=== PATIENT | female | born 1965 | race Two or more races ===

== ENCOUNTER 2019-12-07 10:31 | Inpatient (IN) | payer SELFPAY ==
[~2019-12-07] VITALS: Ht 154.9 cm; Wt 69.9 kg
[2019-12-07] MEDS ORDERED: ALBUTEROL SULF 2.5 MG/0.5ML(0.5%) NEB SOLN HHN ONE (11:00)
[2019-12-07] MEDS ORDERED: IPRATROPIUM BROM 0.5 MG/2.5ML INH SOL HHN ONE (11:00)
[2019-12-07] MEDS ORDERED: methylPREDNISolone SOD SUCC 125 MG/2 ML VL IV ONE (11:00)
[2019-12-07] MEDS ORDERED: cefTRIAXone 1GM/50ML D5W 50 ML IV ONE (11:30)
[2019-12-07 11:52] LABS: Alanine Aminotransferase 48 U/L (13-56); Aspartate Aminotransferase 27 U/L (15-37); BUN/Creatinine Ratio 18.8; Blood Urea Nitrogen 13 mg/dL (7-18); Calcium 8.4 mg/dL (8.5-10.1); Chloride 83 mmol/L (98-107); GFR African American 114 mL/min; GFR Non-African American 94 mL/min; Glucose 147 mg/dL (74-106)
[2019-12-07 11:54] LABS: Basophils # (auto) 0.1 10 ^3/uL (0-0.2); Basophils % (auto) 1.1 % (0.0-2.0); Eosinophils # (auto) 0 10 ^3/uL (0-0.8); Hematocrit 48.2 % (36.0-46.0); Hemoglobin 17.1 g/dL (12.2-16.2); Lymphocytes # (auto) 0.5 10 ^3/uL (0.4-5.4); Lymphocytes % (auto) 7.2 % (10.0-50.0); Mean Corpuscular Hemoglobin 29.4 pg (28.0-32.0); Mean Corpuscular Hgb Conc. 35.6 g/dL (32.0-36.0); Mean Corpuscular Volume 82.8 fL (80.0-100.0); Monocytes # (auto) 0.4 10 ^3/uL (0-1.3); Monocytes % (auto) 6.7 % (0.0-12.0); Neutrophils # (auto) 5.6 10 ^3/uL (1.6-8.6); Nucleated Red Blood Cells % 0.2 %; Platelet Count (auto) 186 10^3/uL (140-450); Red Blood Cells 5.82 10^6/uL (4.0-5.20); Red Cell Distribution Width 13.4 % (11.8-14.3); White Blood Cell 6.5 10^3/uL (4.4-10.8)
[2019-12-07 11:57] LABS: Alkaline Phosphatase 88 U/L (45-117); Bilirubin, Total 0.7 mg/dL (0.2-1.0); Total Protein 8.3 g/dL (6.4-8.2)
[2019-12-07 12:04] LABS: Sodium 118 mmol/L (136-145)
[2019-12-07] MEDS ORDERED: POTASSIUM CHL 20MEQ/100ML 100 ML IV ONE (12:15)
[2019-12-07 12:41] LABS: Albumin 3.7 g/dL (3.4-5.0); Anion Gap 14 (5-15); Carbon Dioxide 21 mmol/L (21-32)
[2019-12-07] MEDS ORDERED: OSELTAMIVIR 75 MG CAP PO ONE (13:45)
[2019-12-07] MEDS ORDERED: ACETAMINOPHEN 500 MG TAB PO PRN (13:45)
[2019-12-07] MEDS ORDERED: PROMETHAZINE HCL 25 MG/ML 1ML IV PRN (13:45)
[2019-12-07] MEDS ORDERED: traMADol HCL 50 MG TAB PO PRN (13:45)
[2019-12-07] MEDS ORDERED: TEMAZEPAM 15 MG CAP PO PRN (13:45)
[2019-12-07] MEDS ORDERED: NITROGLYCERIN 0.4 MG SL TAB SL PRN (13:45)
[2019-12-07] MEDS ORDERED: MORPHINE SULF INJ 2 MG/ML SYRINGE 1ML IV PRN (13:45)
[2019-12-07] MEDS ORDERED: levoFLOXacin 500MG 100 ML IV ONE (13:45)
[2019-12-07] MEDS ORDERED: LACTULOSE 20Gm/30ML SOLN PO PRN (13:45)
[2019-12-07] MEDS ORDERED: ALBUTEROL SULF 2.5 MG/0.5ML(0.5%) NEB SOLN NEB PRN (13:45)
[2019-12-07 14:11] LABS: Amylase 26 U/L (25-115); Lipase 66 U/L (73-393)
[2019-12-07] MEDS: CLINDAMYCIN 600MG IV 50 ML IV SCH ×2 (15:07→22:22)
[2019-12-07] MEDS: SOD CHL 0.9%/ KCL 40MEQ 1,000 ML IV SCH ×2 (15:28→23:42)
[2019-12-07 18:45] VITALS: BP 132/74
[2019-12-07] MEDS: ALBUTEROL SULF 2.5 MG/0.5ML(0.5%) NEB SOLN NEB SCH (19:06)
[2019-12-07] MEDS: IPRATROPIUM BROM 0.5 MG/2.5ML INH SOL NEB SCH (19:06)
[2019-12-07 20:00] VITALS: BP 128/74
[2019-12-07] MEDS ORDERED: OSELTAMIVIR 75 MG CAP PO SCH (22:00)
[2019-12-07] MEDS: FAMOTIDINE 20 MG TAB PO SCH (22:22)
[2019-12-08] VITALS (7 sets, daily range): BP systolic 121–134; BP diastolic 67–80
[2019-12-08] MEDS: IPRATROPIUM BROM 0.5 MG/2.5ML INH SOL NEB SCH ×4 (00:11→18:33)
[2019-12-08] MEDS: ALBUTEROL SULF 2.5 MG/0.5ML(0.5%) NEB SOLN NEB SCH ×4 (00:11→18:33)
[2019-12-08] MEDS: SOD CHL 0.9%/ KCL 40MEQ 1,000 ML IV SCH (04:26)
[2019-12-08 05:25] LABS: Basophils # (auto) 0 10 ^3/uL (0-0.2); Basophils % (auto) 0.4 % (0.0-2.0); Eosinophils # (auto) 0 10 ^3/uL (0-0.8); Hematocrit 40.9 % (36.0-46.0); Hemoglobin 14.6 g/dL (12.2-16.2); Lymphocytes # (auto) 0.6 10 ^3/uL (0.4-5.4); Lymphocytes % (auto) 8.5 % (10.0-50.0); Mean Corpuscular Hemoglobin 29.7 pg (28.0-32.0); Mean Corpuscular Hgb Conc. 35.7 g/dL (32.0-36.0); Mean Corpuscular Volume 83.1 fL (80.0-100.0); Monocytes # (auto) 0.6 10 ^3/uL (0-1.3); Monocytes % (auto) 8.2 % (0.0-12.0); Neutrophils # (auto) 5.9 10 ^3/uL (1.6-8.6); Neutrophils % (auto) 82.9 % (37.0-80.0); Nucleated Red Blood Cells % 0.2 %; Platelet Count (auto) 178 10^3/uL (140-450); Red Blood Cells 4.92 10^6/uL (4.0-5.20); Red Cell Distribution Width 13.4 % (11.8-14.3); White Blood Cell 7.2 10^3/uL (4.4-10.8)
[2019-12-08 05:45] LABS: Potassium 4.1 mmol/L (3.5-5.1)
[2019-12-08 05:49] LABS: BUN/Creatinine Ratio 15.3; Bilirubin, Total 0.3 mg/dL (0.2-1.0); Total Protein 6.7 g/dL (6.4-8.2)
[2019-12-08] MEDS: CLINDAMYCIN 600MG IV 50 ML IV SCH (06:21)
[2019-12-08] MEDS: levoFLOXacin 500MG 100 ML IV SCH (09:31)
[2019-12-08] MEDS: FAMOTIDINE 20 MG TAB PO SCH ×2 (09:31→21:37)
[2019-12-08] MEDS ORDERED: LISI10TA6 PO (10:47)
[2019-12-08] MEDS ORDERED: HYDR25TA4 PO (10:47)
[2019-12-08] MEDS ORDERED: PANTOPRAZOLE 40 MG TAB PO ONE (11:45)
[2019-12-08 11:56] LABS: Urine Bacteria NONE SEEN /hpf (None Seen); Urine Blood Negative /uL (Negative); Urine Specific Gravity 1.008 (1.001-1.035); Urine WBC 1 /hpf (0 - 5)
[2019-12-08] MEDS ORDERED: IOHEXOL 350 MG/ML 100ML IJ ONE (12:21)
[2019-12-08] MEDS ORDERED: OSELTAMIVIR 75 MG CAP PO ONE (13:30)
[2019-12-08] MEDS ORDERED: DEXTROSE (50%) 50ML SYRG IV PRN (13:30)
[2019-12-08] MEDS: methylPREDNISolone SOD SUCC 125 MG/2 ML VL IV SCH ×2 (13:49→21:37)
[2019-12-08 15:04] LABS: BUN/Creatinine Ratio 13.6; Calcium 8.3 mg/dL (8.5-10.1); Magnesium 2.3 mg/dL (1.6-2.6); Potassium 3.7 mmol/L (3.5-5.1)
[2019-12-08] MEDS: InsuLIN REG 1unit/0.01ml Soln (100units/ml) SC SCH ×2 (17:28→22:25)
[2019-12-08] MEDS: ACCU-CHEK COMFORT CURVE STRIP VI SCH ×2 (17:29→22:25)
[2019-12-08] MEDS ORDERED: OSELTAMIVIR 75 MG CAP PO SCH (22:00)
[2019-12-09] MEDS: ALBUTEROL SULF 2.5 MG/0.5ML(0.5%) NEB SOLN NEB SCH ×4 (01:55→18:55)
[2019-12-09] MEDS: IPRATROPIUM BROM 0.5 MG/2.5ML INH SOL NEB SCH ×4 (01:55→18:55)
[2019-12-09 04:00] VITALS: BP 113/62
[2019-12-09 05:56] LABS: BUN/Creatinine Ratio 22.7; Calcium 8.6 mg/dL (8.5-10.1)
[2019-12-09] MEDS: methylPREDNISolone SOD SUCC 125 MG/2 ML VL IV SCH ×3 (06:13→22:14)
[2019-12-09] MEDS: InsuLIN REG 1unit/0.01ml Soln (100units/ml) SC SCH ×4 (06:53→22:34)
[2019-12-09] MEDS: ACCU-CHEK COMFORT CURVE STRIP VI SCH ×4 (06:53→22:15)
[2019-12-09 07:40] VITALS: BP 141/72
[2019-12-09] MEDS: levoFLOXacin 500MG 100 ML IV SCH (09:42)
[2019-12-09] MEDS: FAMOTIDINE 20 MG TAB PO SCH ×2 (09:42→22:15)
[2019-12-09] MEDS: OSELTAMIVIR 75 MG CAP PO SCH (09:43)
[2019-12-09] MEDS: PANTOPRAZOLE 40 MG TAB PO SCH (09:43)
[2019-12-09 11:45] VITALS: BP 139/74
[2019-12-09] MEDS: Glucerna Carbsteady SHAKE Vanilla 8oz PO SCH ×2 (12:00→18:00)
[2019-12-09 22:00] VITALS: BP 145/80
[2019-12-10] MEDS: IPRATROPIUM BROM 0.5 MG/2.5ML INH SOL NEB SCH ×5 (00:20→23:36)
[2019-12-10] MEDS: ALBUTEROL SULF 2.5 MG/0.5ML(0.5%) NEB SOLN NEB SCH ×5 (00:20→23:36)
[2019-12-10 05:00] VITALS: BP 133/83
[2019-12-10] MEDS: ACCU-CHEK COMFORT CURVE STRIP VI SCH ×4 (06:53→21:11)
[2019-12-10] MEDS: methylPREDNISolone SOD SUCC 125 MG/2 ML VL IV SCH ×3 (06:53→21:10)
[2019-12-10] MEDS: InsuLIN REG 1unit/0.01ml Soln (100units/ml) SC SCH ×4 (07:02→21:23)
[2019-12-10 07:41] LABS: Basophils # (auto) 0 10 ^3/uL (0-0.2); Basophils % (auto) 0.1 % (0.0-2.0); Eosinophils # (auto) 0 10 ^3/uL (0-0.8); Hematocrit 41.8 % (36.0-46.0); Hemoglobin 14.7 g/dL (12.2-16.2); Lymphocytes # (auto) 1.3 10 ^3/uL (0.4-5.4); Lymphocytes % (auto) 12.7 % (10.0-50.0); Mean Corpuscular Hemoglobin 29.5 pg (28.0-32.0); Mean Corpuscular Hgb Conc. 35.2 g/dL (32.0-36.0); Mean Corpuscular Volume 83.8 fL (80.0-100.0); Neutrophils # (auto) 7.9 10 ^3/uL (1.6-8.6); Neutrophils % (auto) 77.2 % (37.0-80.0); Platelet Count (auto) 235 10^3/uL (140-450); Red Blood Cells 4.98 10^6/uL (4.0-5.20); Red Cell Distribution Width 13.5 % (11.8-14.3); White Blood Cell 10.2 10^3/uL (4.4-10.8)
[2019-12-10 07:51] LABS: Calcium 8.6 mg/dL (8.5-10.1); Potassium 3.9 mmol/L (3.5-5.1)
[2019-12-10] MEDS: Glucerna Carbsteady SHAKE Vanilla 8oz PO SCH ×3 (08:17→18:05)
[2019-12-10 08:34] VITALS: BP 154/86
[2019-12-10] MEDS: OSELTAMIVIR 75 MG CAP PO SCH (10:00)
[2019-12-10] MEDS: PANTOPRAZOLE 40 MG TAB PO SCH (10:36)
[2019-12-10] MEDS: AZITHROMYCIN 250 MG TAB PO SCH (10:37)
[2019-12-10] MEDS: FAMOTIDINE 20 MG TAB PO SCH ×2 (10:37→21:10)
[2019-12-10 12:38] VITALS: BP 136/75
[2019-12-10 17:00] VITALS: BP 140/74
[2019-12-10 19:03] VITALS: BP 140/74
[2019-12-10 22:00] VITALS: BP 147/87
[2019-12-11 05:38] VITALS: BP 133/81
[2019-12-11 06:25] LABS: Basophils # (auto) 0 10 ^3/uL (0-0.2); Eosinophils # (auto) 0 10 ^3/uL (0-0.8); Hematocrit 42.8 % (36.0-46.0); Lymphocytes # (auto) 0.8 10 ^3/uL (0.4-5.4); Lymphocytes % (auto) 11.4 % (10.0-50.0); Mean Corpuscular Hemoglobin 29.6 pg (28.0-32.0); Mean Corpuscular Volume 84.6 fL (80.0-100.0); Monocytes # (auto) 0.2 10 ^3/uL (0-1.3); Monocytes % (auto) 2.8 % (0.0-12.0); Neutrophils # (auto) 6.2 10 ^3/uL (1.6-8.6); Neutrophils % (auto) 85.8 % (37.0-80.0); Nucleated Red Blood Cells % 0.1 %; Platelet Count (auto) 239 10^3/uL (140-450); Red Blood Cells 5.06 10^6/uL (4.0-5.20); Red Cell Distribution Width 13.5 % (11.8-14.3); White Blood Cell 7.2 10^3/uL (4.4-10.8)
[2019-12-11] MEDS: methylPREDNISolone SOD SUCC 125 MG/2 ML VL IV SCH (06:28)
[2019-12-11] MEDS: ACCU-CHEK COMFORT CURVE STRIP VI SCH ×4 (06:28→22:24)
[2019-12-11] MEDS: ALBUTEROL SULF 2.5 MG/0.5ML(0.5%) NEB SOLN NEB SCH ×3 (06:30→19:45)
[2019-12-11] MEDS: IPRATROPIUM BROM 0.5 MG/2.5ML INH SOL NEB SCH ×3 (06:30→19:45)
[2019-12-11 06:33] LABS: Calcium 8.6 mg/dL (8.5-10.1)
[2019-12-11 06:35] LABS: BUN/Creatinine Ratio 36.4
[2019-12-11] MEDS: InsuLIN REG 1unit/0.01ml Soln (100units/ml) SC SCH ×4 (06:47→22:35)
[2019-12-11 08:00] VITALS: BP 147/75
[2019-12-11] MEDS: Glucerna Carbsteady SHAKE Vanilla 8oz PO SCH ×3 (08:00→18:00)
[2019-12-11 08:59] VITALS: BP 147/75
[2019-12-11] MEDS: FAMOTIDINE 20 MG TAB PO SCH ×2 (10:25→22:18)
[2019-12-11] MEDS: AZITHROMYCIN 250 MG TAB PO SCH (10:25)
[2019-12-11] MEDS: methylPREDNISolone SOD SUCC 40 MG/ML VL IV SCH ×2 (10:25→22:18)
[2019-12-11] MEDS: PANTOPRAZOLE 40 MG TAB PO SCH (10:25)
[2019-12-11 13:00] VITALS: BP 146/76
[2019-12-11 17:00] VITALS: BP 143/75
[2019-12-11 22:00] VITALS: BP 140/73
[2019-12-12] MEDS: IPRATROPIUM BROM 0.5 MG/2.5ML INH SOL NEB SCH ×3 (00:34→11:59)
[2019-12-12] MEDS: ALBUTEROL SULF 2.5 MG/0.5ML(0.5%) NEB SOLN NEB SCH ×3 (00:34→11:59)
[2019-12-12 04:55] VITALS: BP 145/90
[2019-12-12] MEDS: ACCU-CHEK COMFORT CURVE STRIP VI SCH ×2 (06:43→11:29)
[2019-12-12] MEDS: InsuLIN REG 1unit/0.01ml Soln (100units/ml) SC SCH ×2 (06:50→11:29)
[2019-12-12] MEDS: Glucerna Carbsteady SHAKE Vanilla 8oz PO SCH ×2 (08:34→13:05)
[2019-12-12 09:00] VITALS: BP 141/79
[2019-12-12] MEDS: AZITHROMYCIN 250 MG TAB PO SCH (09:28)
[2019-12-12] MEDS: FAMOTIDINE 20 MG TAB PO SCH (09:28)
[2019-12-12] MEDS: PANTOPRAZOLE 40 MG TAB PO SCH (09:29)
[2019-12-12] MEDS: methylPREDNISolone SOD SUCC 40 MG/ML VL IV SCH (09:29)
[2019-12-12 12:19] VITALS: BP 152/76
[2019-12-12 13:01] VITALS: BP 152/76
== END 2019-12-12 14:00 | disposition home or self-care (01) | DRG 193 ==
LOC: ER 10:31 → TELE 10:32 → DOU IN ICU 18:18 → TELE-CENTR 12-09 13:06
PROVIDERS: ADMIT Internal Medicine; ATTEND Internal Medicine
DX: J18.9 Pneumonia, unspecified organism (principal); J96.00 Acute respiratory failure, unspecified whether with hypoxia or hypercapnia; E87.1 Hypo-osmolality and hyponatremia; E44.0 Moderate protein-calorie malnutrition; J44.0 Chronic obstructive pulmonary disease with (acute) lower respiratory infection; E78.00 Pure hypercholesterolemia, unspecified; I10 Essential (primary) hypertension; E78.5 Hyperlipidemia, unspecified; E87.6 Hypokalemia; R00.0 Tachycardia, unspecified; E11.65 Type 2 diabetes mellitus with hyperglycemia; E11.21 Type 2 diabetes mellitus with diabetic nephropathy; R59.1 Generalized enlarged lymph nodes; Z68.29 Body mass index [BMI] 29.0-29.9, adult
CPT/HCPCS: 36415; 71045; 71046; 71275; 80048; 80053; 81001; 82150; 82962; 83036; 83690; 83735; 83880; 84439; 84443; 84484; 85025; 86738; 87040; 87070; 87205; 87278; 87804; 93005; 94640; 96365; 96367; 96375; 97163; G0378; J0696; J1815; J1956; J3480; J3490

== ENCOUNTER 2024-10-22 05:13 | Emergency (ER) | payer MEDICAID, OTHER ==
[~2024-10-22] VITALS: Ht 152.4 cm; Wt 75.0 kg
[~2024-10-22 05:13] MED LIST: HYDR25TA4 PO; LISI10TA34 PO
[2024-10-22 07:21] VITALS: BP 140/80; PULSE 99; RESP 16; TEMP 97.9; O2SAT 93
--- NOTE | 2024-10-22 07:38 | ED.PDOC ---
History of Present Illness HPI Comments Patient with Headache flu symptoms x 2 days. Productive cough with green mucus. Body aches and fatigue. Chief Complaint: Flu like Time Seen by MD: 07:32 Primary Care Provider: UNKNOWN Allergies: Coded Allergies: NO KNOWN ALLERGIES (Unverified , 02/02/16) Home Meds Reported Medications Lisinopril (Lisinopril) 10 Mg Tab, 10 MG PO DAILY, TAB 12/08/19 Hydrochlorothiazide (Hydrochlorothiazide) 25 Mg Tab, 25 MG PO DAILY for 30 Days, MG 12/08/19 Mode of Arrival: Ambulatory Past Medical History PAST MEDICAL HISTORY: High Lipids, HTN FREE LANCE ARTIST History: No Pertinent FREE LANCE ARTIST History Family History Family History: No family hx of DM, No family hx of Heart kristen, Unobtainable Social History Smoker: Non-Smoker Alcohol: Denies ETOH Use Drugs: Denies Drug Use Lives In: Home Constitutional: reports: chills, fever Respiratory: reports: cough, others (Green mucus) Neurological: reports: weakness Musculoskeletal: reports: muscle pain Physical Exam General Appearance: No Apparent Distress HEENT: Normal ENT Inspection, PERRL/EOMI, Pharynx Normal, TMs Normal Neck: Full Range of Motion, Non-Tender, Normal Inspection, Supple Respiratory: No Accessory Muscle Use, No Respiratory Distress, Normal Breath Sounds Cardiovascular: Regular Rate/Rhythm Breast Exam: Deferred Gastrointestinal: Non Tender, Normal Bowel Sounds Genitalia: Deferred Pelvic: Deferred Rectal: Deferred Extremities: Normal inspection, Normal range of motion Neurologic: No Motor Deficits, Normal Mood, No Sensory Deficits Cerebellar Function: Normal Reflexes: NOT DONE Skin: Dry, Warm Lymphatic: No Adenopathy Was a procedure done? Was a procedure done?: No Differential Dx Considerations may include: Covid vs Influenza X-Ray, Labs, Meds, VS Vital Signs Date Time Temp Pulse Resp B/P (MAP) Pulse Ox O2 Delivery O2 Flow Rate FiO2 10/22/24 07:21 99 16 93 Room Air 10/22/24 07:21 97.9 99 16 140/80 (100) 93 97.9 10/22/24 05:19 98.0 93 16 128/86 (100) 94 Lab Test 10/22/24 07:13 Range/Units Influenza Type A Antigen Negative Negative Influenza Type B Antigen Negative Negative SARS-CoV-2 Antigen (Rapid) Negative NEGATIVE X-Ray, Labs, Meds, VS Comment Patient seen and examined by me. Flu and covid pending. Chest xray pending. Patient flu and Covid were both negative. Patient will be started on Flonase nasal spray and Antibiotics for Upper Respiratory infection. CHEST RADIOGRAPH Indication: low O2 Technique: Frontal and lateral view of the chest was obtained Comparison: CHEST TWO VIEWS ROUTINE on DOS: 12/08/19, CHEST TWO VIEWS ROUTINE on DOS: 12/07/19 FINDINGS: Lines and Tubes: None Lungs: Right lower lobe airspace disease. Pleura: No effusion. No pneumothorax. Cardiomediastinal contours: Unremarkable Bones: Unremarkable IMPRESSION: Right lower lobe airspace disease. Time of 1ST Reevaluation: 09:07 Reevaluation 1ST: Improved Patient Education/Counseling: Diagnosis, Treatment, Prognosis, Need For Follow Up Family Education/Counseling: No Family Present Departure 1 Departure Time of Disposition: 09:07 Impression: Primary Impression: Upper respiratory infection Disposition: HOME / SELF CARE / HOMELESS Condition: Good Additional Instructions: Finish antibiotics as directed Flu and Covid test were normal here Use the nose spray to help with your congestion Drink alot of fluids e-Prescriptions Fluticasone Propionate (Nasal) (Flonase Allergy Relief) 50 Mcg/Act Spr 50 MCG NA BID for 7 Days, #1 SPRAY Prov: LOR MCKINNEY 10/22/24 Amoxicillin & Pot Clavulanate (AUGMENTIN TABLET) 875 Mg Tb 875 MG PO BID for 10 Days, #20 TAB Prov: LOR MCKINNEY 10/22/24 Critical Care Note Critical Care Time?: No Stability Stability form required: No LOR MCKINNEY Oct 22, 2024 07:38
--- NOTE | 2024-10-22 07:58 | DVH ---
CHEST RADIOGRAPH Indication: low O2 Technique: Frontal and lateral view of the chest was obtained Comparison: CHEST TWO VIEWS ROUTINE on DOS: 12/08/19, CHEST TWO VIEWS ROUTINE on DOS: 12/07/19 FINDINGS: Lines and Tubes: None Lungs: Right lower lobe airspace disease. Pleura: No effusion. No pneumothorax. Cardiomediastinal contours: Unremarkable Bones: Unremarkable IMPRESSION: Right lower lobe airspace disease.
[2024-10-22 09:01] LABS: COVID19 ANTIGEN SOFIA FIA NEGATIVE (NEGATIVE); Rapid Influenza A Negative (Negative); Rapid Influenza B Negative (Negative)
[2024-10-22] MEDS ORDERED: AUG875T PO (09:10)
[2024-10-22] MEDS ORDERED: FLUT1SPR5 (09:10)
== END 2024-10-22 09:18 | disposition home or self-care (01) ==
LOC: EDUNIT# 05:13 → EDBD 05:13 → ER 05:13
DX: J06.9 Acute upper respiratory infection, unspecified (principal); I10 Essential (primary) hypertension; R05.9 Cough, unspecified; R53.83 Other fatigue; Z20.822 Contact with and (suspected) exposure to COVID-19
CPT/HCPCS: 36415; 71046; 87426; 87804

== ENCOUNTER 2025-02-03 02:20 | Inpatient (IN) | payer MEDICAID ==
[~2025-02-03] VITALS: Ht 154.9 cm; Wt 56.7 kg
[2025-02-03] VITALS (16 sets, daily range): BP systolic 119–143; BP diastolic 72–81; PULSE 88–124; RESP 16–24; TEMP 97.3–98.3; O2SAT 90–98
[~2025-02-03 02:20] MED LIST changes: +AUG875T PO; +FLUT1SPR5
--- NOTE | 2025-02-03 02:50 | ED.PDOC ---
SOB-HPI HPI Comments 59-year-old female who came to ER with shortness a breath. History of hyp ertension, diabetes, COPD, not on home oxygen. She has been having shortness of breath and wheezing for the past week, has been self medicating with nebulizers and inhalers at home but that has offered no relief. Upon arrival to the ER patient is saturating 85% room air. Comments Shortness a breath Time Seen by MD: 02:48 Primary Care Provider: UNKNOWN Reviewed notes: Nurses Notes Information Source: Patient Mode of Arrival: Ambulatory Severity: Moderate Timing: Days Duration: Intermittent Context: At Rest, With Light Exertion History of: COPD Prehospital treatment: Breathing Tx, Oxygen Associated Signs and Symptoms: Wheeze, Cough Quality: Tightness Radiation: No Radiation Location: Chest (R), Chest (L) If cough with SOB: Non-Productive Review of Systems REVIEW OF SYSTEMS: No fever, no chills, or fatigue. Positive flu-like symptoms. HEENT: No sore throat, no earache, no congestion, no neck pain. Cardiac: No chest pain. No palpitations. Lungs: (+) shortness of breath, (+) cough. (+) wheezing GI: No nausea, no vomiting, no diarrhea, no constipation, no abdominal pain : No dysuria, frequency, or urgency. No hematuria. Musculoskeletal: No joint pain , no joint swelling, no extremity edema. Skin: No rash, no itching. Neuro: No headache, no dizziness, no weakness Vital Signs Vital Signs Date Time Temp Pulse Resp B/P (MAP) Pulse Ox O2 Delivery O2 Flow Rate FiO2 02/03/25 06:12 98.3 95 28 143/78 (99) 93 98.3 02/03/25 05:55 Nasal Cannula* 4 36 Physical Exam General: Awake, alert and oriented. No acute distress. Skin: Skin in warm, dry and intact. Appropriate color for ethnicity. Nailbeds pink with no cyanosis. HEENT: The head is normocephalic and atraumatic. Conjunctivae are clear without exudates or hemorrhage. Sclera is non-icteric. EOM are intact. No signs of nystagmus. Eyelids are normal in appearance without swelling or lesions. Oral mucosa is pink and moist Neck: The neck is supple with normal range of motion. No JVD. Cardiac: Heart rate and rhythm are normal. No murmurs, gallops, or rubs are auscultated. Respiratory: No signs of respiratory distress. Positive wheezing throughout. Abdominal: Abdomen is soft, non-tender without distention. Bowel sounds are present and normoactive in all four quadrants. Extremities: Upper and lower extremities are atraumatic in appearance without deformity or edema. Neurological: The patient is awake, alert and oriented to person, place, and time with normal speech. Speech is clear. There is no facial asymmetry. Psychiatric: Appropriate mood and affect. Good judgement and insight. No visual or auditory hallucinations. Past Medical History PAST MEDICAL HISTORY: COPD, DM, High Lipids, HTN Surgical History: Denies all surgeries MANAGER COSMETICS History: No Pertinent MANAGER COSMETICS History Family History Family History: No family hx of DM, No family hx of Heart kristen, Unobtainable Social History Smoker: Non-Smoker Alcohol: Denies ETOH Use Drugs: Denies Drug Use Lives In: Home EKG EKG : Pulse Rate (adult): 103 Cardiac Rhythm: ST Comments No STEMI Was a procedure done? Was a procedure done?: No X-Ray, Labs, Meds, VS Vital Signs Date Time Temp Pulse Resp B/P (MAP) Pulse Ox O2 Delivery O2 Flow Rate FiO2 02/03/25 06:12 98.3 95 28 143/78 (99) 93 98.3 02/03/25 05:55 95 90 Nasal Cannula* 4 36 02/03/25 03:08 18 93 Nasal Cannula* 2 28 02/03/25 02:50 97.7 106 22 122/77 (92) 85 97.7 02/03/25 02:50 103 02/03/25 02:37 103 Lab Test 02/03/25 03:05 Range/Units White Blood Count 16.0 H 4.4-10.8 10^3/uL Red Blood Count 5.32 H 4.0-5.20 10^6/uL Hemoglobin 15.1 12.2-16.2 g/dL Hematocrit 43.4 36.0-46.0 % Mean Corpuscular Volume 81.6 80.0-100.0 fL Mean Corpuscular Hemoglobin 28.4 28.0-32.0 pg Mean Corpuscular Hemoglobin Concent 34.7 32.0-36.0 g/dL Red Cell Distribution Width 14.2 11.8-14.3 % Platelet Count 326 140-450 10^3/uL Mean Platelet Volume 7.5 6.9-10.8 fL Neutrophils (%) (Auto) 37.0-80.0 % Lymphocytes (%) (Auto) 10.0-50.0 % Monocytes (%) (Auto) 0.0-12.0 % Basophils (%) (Auto) 0.0-2.0 % Neutrophils # (Auto) 1.6-8.6 10 ^3/uL Lymphocytes # (Auto) 0.4-5.4 10 ^3/uL Monocytes # (Auto) 0-1.3 10 ^3/uL Differential Total Cells Counted 100.0 100 Neutrophils % (Manual) 48 37.0-80.0 Band Neutrophils % (Manual) 0 Lymphocytes % (Manual) 14 10.0-50.0 Monocytes % (Manual) 8 0-12 Eosinophils % (Manual) 30 H 0-7 Basophils % (Manual) 0 0.0-2.0 Metamyelocytes % (manual) 0 Myelocytes % (Manual) 0 Promyelocytes % (Manual) 0 Blast Cells % (Manual) 0 Reactive Lymphocytes 0 Platelet Estimate Adequate Erythrocyte Sedimentation Rate 5 0-20 mm/hr Sodium Level 132 L 136-145 mmol/L Potassium Level 2.7 L 3.5-5.1 mmol/L Chloride Level 95 L 98-107 mmol/L Carbon Dioxide Level 25 20-31 mmol/L Anion Gap 12 5-15 Blood Urea Nitrogen 8 L 9-23 mg/dL Creatinine 0.63 0.550-1.02 mg/dL Glomerular Filtration Rate Calc 101 >90 mL/min BUN/Creatinine Ratio 12.7 10.0-20.0 Serum Glucose 130 H 74-106 mg/dL Hemoglobin A1c 6.9 H <5.7 % A1C Lactic Acid Level 1.3 0.4-2.0 mmol/L Calcium Level 8.9 8.7-10.4 mg/dL Magnesium Level 1.8 1.6-2.6 mg/dL Troponin I High Sensitivity 3 L </=34 ng/L C-Reactive Protein High Sensitivity 0.72 <1.0 mg/dL B-Type Natriuretic Peptide 8.55 0-100 pg/mL Current Medications Medications (Trade) Dose Ordered Sig/Mehdi Route Start Time Stop Time Status Last Admin Albuterol (Ventolin Medneb) 2.5 mg ONCE ONCE NEB 02/03/25 03:00 02/03/25 03:01 DC 02/03/25 03:07 Ipratropium [place] (Atrovent Medneb) 0.5 mg ONCE ONCE NEB 02/03/25 03:00 02/03/25 03:01 DC 02/03/25 03:07 Potassium Chloride 50 ml @ 25 mls/hr Q2H IV 02/03/25 05:15 02/03/25 09:14 DC 02/03/25 08:34 Ceftriaxone Sodium 50 ml @ 100 mls/hr ONCE ONCE IV 02/03/25 05:00 02/03/25 05:29 DC 02/03/25 06:21 PATIENT: RONEY JOSEPH ACCT: [id number] UNIT: [id number] : 1965 LOC: ER ROOM / BED: / AGE / SEX: 59 / F ADM STATUS: REG ER SERVICE [id number] ORDERING PHYSICIAN: SANIYA PLEITEZ MD PROCEDURE(s): CXR2 - CHEST TWO VIEWS ROUTINE REASON: Cough shortness of breath ORDER NUMBER(s): [id number], ACCESSION NUMBER(s): [id number] CHEST RADIOGRAPH Indication: Cough shortness of breath Technique: Frontal and lateral view of the chest was obtained Comparison: XY CHEST TWO VIEWS ROUTINE on DOS: 10/22/24, CHEST TWO VIEWS ROUTINE on DOS: 12/08/19, CHEST TWO VIEWS ROUTINE on DOS: 12/07/19 FINDINGS: Lines and Tubes: None Lungs: Clear Pleura: No effusion. No pneumothorax. Cardiomediastinal contours: Unremarkable Bones: Unremarkable IMPRESSION: 1. No evidence of acute disease. ATED BY: JUAN KIM MD DICTATED DATE/TIME: 02/03/25442 SIGNED BY: JUAN KIM MD SIGNED DATE/TIME: 02/03/25442 CC: Images Reviewed?: Images reviewed and evaluated by me (Independent interpretation of chest x-ray: No acute disease) Time of 1ST Reevaluation: 02:46 Reevaluation 1ST: Unchanged Patient Education/Counseling: Need For Follow Up Family Education/Counseling: No Family Present Departure 1 Departure Time of Disposition: 04:58 Impression: Primary Impression: Hypokalemia Additional Impressions: COPD exacerbation Hypoxia Disposition: 09 ADMITTED INPATIENT Condition: Stable Comments 59-year-old COPD exacerbation. Patient is stabilized in the ED. Patient admitted to hospitalist service for further treatment, evaluation and monitoring. Extensive evaluation was performed in attempt to identify or rule out: (See differential diagnosis section) The following tests were ordered, and results were reviewed by me and discussed with patient: (See diagnostic results section) The following test were independently interpreted by me: EKG, chest x-ray I reviewed and agreed with the following test results read by other providers: Chest x-ray I reviewed the following notes from the pt's past medical encounters: N/A Additional information was gathered from interviewing the following independent historians: N/A Discussion of management or test interpretation with external physician/other qualified health college and career counselor: N/A Addressed one or more chronic illnesses with severe exacerbation, progression, or side effects of treatment: Acute COPD exacerbation. Hypokalemia Decision regarding hospitalization or escalation of hospital level of care: Risk and benefits of admission for further treatment of patient's condition was considered. Due to patient's current clinical condition, high risk of decline and poor outcome if discharged and need for further inpatient management and monitoring, patient will be admitted to the hospital. Discussed with patient. Drug therapy requiring intensive monitoring for toxicity: IV potassium Parenteral controlled substances: N/A Decision regarding elective major surgery with identified patient or procedure risk factors: N/A Decision regarding emergency major surgery: N/A Decision not to resuscitate or to de-escalate care because of poor prognosis: N/A Diagnosis or treatment significantly limited by social determinants of health: N/A Critical Care Note Critical Care Time?: Yes (35 min-critical care time only) Stability Stability form required: No Heart Score Heart Score: Heart Score Response (Comments) Value History N/A 0 EKG N/A 0 Age N/A 0 Risk Factors N/A 0 Troponin N/A 0 Total 0 I personally scribed for SANIYA PLEITEZ MD ([email or web address]) on 02/03/25 at 02:50. Electronically submitted by Carlitos Tobar ([email or web address]). SANIYA PLEITEZ MD February 03, 2025 02:50
[2025-02-03] MEDS: IPRATROPIUM BROM 0.5 MG/2.5ML INH SOL NEB ONE (03:07)
[2025-02-03] MEDS: ALBUTEROL SULF 2.5 MG/0.5ML(0.5%) NEB SOLN NEB ONE (03:07)
[2025-02-03 03:26] LABS: Hematocrit 43.4 % (36.0-46.0); Hemoglobin 15.1 g/dL (12.2-16.2); Mean Corpuscular Hemoglobin 28.4 pg (28.0-32.0); Mean Corpuscular Hgb Conc. 34.7 g/dL (32.0-36.0); Mean Corpuscular Volume 81.6 fL (80.0-100.0); Platelet Count (auto) 326 10^3/uL (140-450); Red Blood Cells 5.32 10^6/uL (4.0-5.20); Red Cell Distribution Width 14.2 % (11.8-14.3)
[2025-02-03 03:30] LABS: Band Neutrophils % (manual) 0; Basophils % (manual) 0 (0.0-2.0); Blast Cells 0; Metamyelocytes % 0; Myelocytes % 0; Promyelocytes % 0; Reactive Lymphocytes 0
[2025-02-03 03:36] LABS: Anion Gap 12 (5-15); Carbon Dioxide 25 mmol/L (20-31)
[2025-02-03 03:37] LABS: Calcium 8.9 mg/dL (8.7-10.4)
[2025-02-03 03:39] LABS: Chloride 95 mmol/L (98-107); Potassium 2.7 mmol/L (3.5-5.1); Sodium 132 mmol/L (136-145)
[2025-02-03 03:42] LABS: BUN/Creatinine Ratio 12.7 (10.0-20.0)
[2025-02-03 03:53] LABS: Blood Urea Nitrogen 8 mg/dL (9-23); Glucose 130 mg/dL (74-106)
[2025-02-03 04:04] LABS: Eosinophils % (manual) 30 (0-7); Lymphocytes % (manual) 14 (10.0-50.0); Monocytes % (manual) 8 (0-12); Platelet Estimate Adequate
--- NOTE | 2025-02-03 04:45 | DVH ---
CHEST RADIOGRAPH Indication: Cough shortness of breath Technique: Frontal and lateral view of the chest was obtained Comparison: XY CHEST TWO VIEWS ROUTINE on DOS: 10/22/24, CHEST TWO VIEWS ROUTINE on DOS: 12/08/19, CHES T TWO VIEWS ROUTINE on DOS: 12/07/19 FINDINGS: Lines and Tubes: None Lungs: Clear Pleura: No effusion. No pneumothorax. Cardiomediastinal contours: Unremarkable Bones: Unremarkable IMPRESSION: 1. No evidence of acute disease.
[2025-02-03] MEDS: cefTRIAXone 1GM/50ML D5W 50 ML IV ONE (06:21)
[2025-02-03] MEDS: POTASSIUM CHL 20MEQ/50ML 50 ML IV SCH (06:37)
[2025-02-03] MEDS ORDERED: DEXTROSE (50%) 50ML SYRG IV PRN (07:00)
[2025-02-03] MEDS ORDERED: ONDANSETRON HCL 4 MG/2 ML VIAL IV PRN (07:00)
[2025-02-03] MEDS: ACCU-CHEK COMFORT CURVE STRIP VI SCH (07:00)
[2025-02-03] MEDS ORDERED: ACETAMINOPHEN 325 MG TAB PO PRN (07:00)
[2025-02-03] MEDS ORDERED: HYDROcodone-ACET 5/325MG TAB PO PRN (07:00)
--- NOTE | 2025-02-03 07:12 | DVHHP2 ---
History of Present Illness Reason for Visit: SOB History of Present Illness Aura Montes De Oca is a 59-year-old female with past medical history of hypertension, hyperlipidemia, diabetes type 2, COPD, left breast lumpectomy, and cholecystectomy who presents to the ED with shortness of breath with wheezing and productive white phlegm. Patient reports that she does not use home oxygen however on upon examination on 2 L nasal cannula. She also reports that her granddaughter was sick at home. She also states that she had the same symptoms with shortness of breath and wheezing 1 year ago and was admitted to [facility] for 1 week. Patient reports that she is a never smoker. Patient states that the shortness of breath came about when she is trying to go to sleep. She also reports that she does not use any DME is when she ambulates. She does state that when she does ambulate few steps she does get extremely short of breath. Patient denies any chest pain, fever, chills, lightheadedness, weakness, dizziness, abdominal pain, nausea, vomiting, diarrhea, recent travels, recent trauma or injury, or recent ingestion of spoiled food. Cardiovascular: HTN, hyperipidemia Pulmonary: COPD Endocrine: Diabetes Past Surgical History: Cholecystectomy, Other (Left breast lumpectomy) Family History: DM, Hyperlipidemia, Hypertension, Other (Mom with diabetes and hypertension and dad with hyperlipidemia) Smoke: No ALCOHOL: none Drugs: None Lives: with Family Domestic Violence: Neg Review of Systems Respiratory: Cough, Shortness of breath, Wheezing, Sputum Allergies: Coded Allergies: NO KNOWN ALLERGIES (Unverified , 02/02/16) Medications Current Medications Medications Dose Ordered Sig/Mehdi Route Start Time Stop Time Status Last Admin Dose Admin Potassium Chloride 50 ml @ 25 mls/hr Q2H IV 02/03/25 05:15 02/03/25 09:14 02/03/25 06:37 25 MLS/HR Exam Vital Signs Vital Signs Date Time Temp Pulse Resp B/P (MAP) Pulse Ox O2 Delivery O2 Flow Rate FiO2 02/03/25 06:12 98.3 95 28 143/78 (99) 93 98.3 02/03/25 03:08 Nasal Cannula* 2 28 General Appearance: Alert, Oriented X3, Cooperative, mild distress HEENT: Atraumatic, PERRLA, EOMI, Mucous membr. moist/pink Respiratory: Normal air movement Cardiovascular: Normal S1, Normal S2 Abdominal: Normal bowel sounds, Soft, No tenderness, No hepatospenomegaly, No masses Extremities: No clubbing, No cyanosis, No edema, Normal pulses, No tenderness/swelling Skin: No significant lesion Neuro: Normal speech, Strength at 5/5 X4 ext, Normal tone, Sensation intact Psych/Mental Status: Mental status NL, Mood NL Labs/Xrays Labs Test 02/03/25 03:05 Range/Units White Blood Count 16.0 H 4.4-10.8 10^3/uL Red Blood Count 5.32 H 4.0-5.20 10^6/uL Hemoglobin 15.1 12.2-16.2 g/dL Hematocrit 43.4 36.0-46.0 % Mean Corpuscular Volume 81.6 80.0-100.0 fL Mean Corpuscular Hemoglobin 28.4 28.0-32.0 pg Mean Corpuscular Hemoglobin Concent 34.7 32.0-36.0 g/dL Red Cell Distribution Width 14.2 11.8-14.3 % Platelet Count 326 140-450 10^3/uL Mean Platelet Volume 7.5 6.9-10.8 fL Neutrophils (%) (Auto) 37.0-80.0 % Lymphocytes (%) (Auto) 10.0-50.0 % Monocytes (%) (Auto) 0.0-12.0 % Basophils (%) (Auto) 0.0-2.0 % Neutrophils # (Auto) 1.6-8.6 10 ^3/uL Lymphocytes # (Auto) 0.4-5.4 10 ^3/uL Monocytes # (Auto) 0-1.3 10 ^3/uL Differential Total Cells Counted 100.0 100 Neutrophils % (Manual) 48 37.0-80.0 Band Neutrophils % (Manual) 0 Lymphocytes % (Manual) 14 10.0-50.0 Monocytes % (Manual) 8 0-12 Eosinophils % (Manual) 30 H 0-7 Basophils % (Manual) 0 0.0-2.0 Metamyelocytes % (manual) 0 Myelocytes % (Manual) 0 Promyelocytes % (Manual) 0 Blast Cells % (Manual) 0 Reactive Lymphocytes 0 Platelet Estimate Adequate Sodium Level 132 L 136-145 mmol/L Potassium Level 2.7 L 3.5-5.1 mmol/L Chloride Level 95 L 98-107 mmol/L Carbon Dioxide Level 25 20-31 mmol/L Anion Gap 12 5-15 Blood Urea Nitrogen 8 L 9-23 mg/dL Creatinine 0.63 0.550-1.02 mg/dL Glomerular Filtration Rate Calc 101 >90 mL/min BUN/Creatinine Ratio 12.7 10.0-20.0 Serum Glucose 130 H 74-106 mg/dL Calcium Level 8.9 8.7-10.4 mg/dL Magnesium Level 1.8 1.6-2.6 mg/dL Troponin I High Sensitivity 3 L </=34 ng/L B-Type Natriuretic Peptide 8.55 0-100 pg/mL CHEST RADIOGRAPH Indication: Cough shortness of breath Technique: Frontal and lateral view of the chest was obtained Comparison: XY CHEST TWO VIEWS ROUTINE on DOS: 10/22/24, CHEST TWO VIEWS ROUTINE on DOS: 12/08/19, CHEST TWO VIEWS ROUTINE on DOS: 12/07/19 FINDINGS: Lines and Tubes: None Lungs: Clear Pleura: No effusion. No pneumothorax. Cardiomediastinal contours: Unremarkable Bones: Unremarkable IMPRESSION: 1. No evidence of acute disease. Assessment/Plan Assessment/Plan Assessment Acute on chronic COPD exacerbation Acute hypoxic respiratory failure Leukocytosis probable pneumonia versus sepsis versus other etiology Hypokalemia Hyponatremia History of hypertension History of hyperlipidemia History of diabetes type 2 History of left breast lumpectomy History of cholecystectomy Plan Admit to tele Supportive oxygen Replete lytes Antiemetics Pain management Chest x-ray noted Blood cultures Potassium chloride ordered in ED IV antibiotics-ceftriaxone Duo nebs UA Mag level Manual differential BNP Troponin negative Steroids ESR CRP Diet Home medications reconciled DVT prophylaxis-Lovenox PUD prophylaxis-not indicated no history of GERD or GI bleed Discussed plan of care with patient and nurse Plan discussed with: Patient Date of Service: February 03, 2025 Billing Provider: RODDY LAWRENCE Common Visit Codes: [id number] INP/OBS CARE (HIGH) RODDY LAWRENCE February 03, 2025 07:12
[2025-02-03] MEDS: ALBUTEROL SULF 2.5 MG/0.5ML(0.5%) NEB SOLN ONE (07:57)
[2025-02-03] MEDS: IPRATROPIUM BROM 0.5 MG/2.5ML INH SOL ONE (07:57)
[2025-02-03 08:10] LABS: Erythrocyte Sedimentation Rate 5 mm/hr (0-20)
[2025-02-03] MEDS: cefTRIAXone 1GM/50ML D5W 50 ML IV SCH (09:48)
[2025-02-03] MEDS: InsuLIN REG 1unit/0.01ml Soln (100units/ml) SC SCH (09:48)
[2025-02-03] MEDS: ALBUTEROL SULF 2.5 MG/0.5ML(0.5%) NEB SOLN NEB SCH (09:56)
[2025-02-03] MEDS: IPRATROPIUM BROM 0.5 MG/2.5ML INH SOL NEB SCH (09:56)
[2025-02-03] MEDS ORDERED: PATIENTS OWN MEDICATION (Lisinopril 10 MG) PO SCH (10:00)
[2025-02-03] MEDS: MAGNESIUM SULFATE 1GM/100ML 100 ML IV ONE (10:35)
[2025-02-03] MEDS: ENOXAPARIN SOD 40 MG/0.4 ML SYRINGE SC SCH (10:35)
[2025-02-03] MEDS: methylPREDNISolone SOD SUCC 40 MG/ML VL IV SCH (10:36)
[2025-02-03] MEDS: LISINOPRIL 5 MG TAB PO SCH (10:42)
[2025-02-03] MEDS: hydroCHLOROthiazide 25 MG TAB PO SCH (10:43)
[2025-02-03] MEDS: FLUTICASONE PROP NASAL SPR 0.05 % (50MCG) 16GM SCH (11:11)
--- NOTE | 2025-02-03 13:32 | DVHPN2 ---
Reviewed: Care Plan, H&P, Labs, Medications, Previous Orders, Radiology Changes from previous H/P or p: No Changes Respiratory: Cough, Shortness of breath, Wheezing, Sputum Objective Vitals Vital Signs Date Time Temp Pulse Resp B/P (MAP) Pulse Ox O2 Delivery O2 Flow Rate FiO2 02/03/25 12:06 102 02/03/25 10:43 161/94 02/03/25 10:02 24 92 02/03/25 09:56 Oxymizer 4.0 02/03/25 09:56 N/A 02/03/25 07:25 97.7 97.7 Medications Current Medications Medications Dose Ordered Sig/Mehdi Route Start Time Stop Time Status Last Admin Dose Admin Albuterol 2.5 mg Q4HWA NEB 02/03/25 10:00 02/03/25 09:56 2.5 MG Ipratropium [place] 0.5 mg Q4HWA NEB 02/03/25 10:00 02/03/25 09:56 0.5 MG Methylprednisolone Sodium Succinate 40 mg BID IV 02/03/25 10:00 02/03/25 10:36 40 MG Ceftriaxone Sodium 50 ml @ 100 mls/hr DAILY@09 IV 02/03/25 09:00 02/03/25 09:48 100 MLS/HR Acetaminophen/ Hydrocodone Bitart 1 tab Q4HP PRN PO 02/03/25 07:00 Ondansetron HCl 4 mg Q4HP PRN IV 02/03/25 07:00 Enoxaparin Sodium 40 mg DAILY SC 02/03/25 10:00 02/03/25 10:35 40 MG Acetaminophen 650 mg Q6HP PRN PO 02/03/25 07:00 Diagnostic Test (Pha) 1 strip ACHS 02/03/25 07:00 02/03/25 11:30 1 STRIP Insulin Human Regular ACHS SC 02/03/25 07:00 02/03/25 12:20 3 UNITS Dextrose 50 ml UD PRN IV 02/03/25 07:00 Fluticasone Propionate 50 mcg BID NA 02/03/25 10:00 02/03/25 11:11 50 MCG Hydrochlorothiazide 25 mg DAILY PO 02/03/25 10:00 02/03/25 10:43 25 MG Patient Own Medication 10 mg DAILY PO 02/03/25 10:00 UNV Lisinopril 10 mg DAILY PO 02/03/25 10:00 02/03/25 10:42 10 MG Laboratory Results Laboratory Tests 02/03/25 03:05 Chemistry Test 02/03/25 03:05 Calcium Level 8.9 mg/dL (8.7-10.4) Magnesium Level 1.8 mg/dL (1.6-2.6) Cardiac Markers Test 02/03/25 03:05 B-Type Natriuretic Peptide 8.55 pg/mL (0-100) HgA1c, TSH Test 02/03/25 03:05 Hemoglobin A1c 6.9 % A1C (<5.7) H Labs and/or images reviewed: Labs reviewed by me, Image(s) reviewed by me Assessment/Plan Assessment/Plan Acute hypoxic respiratory failure: Oxygen by nasal cannula Acute on chronic COPD exacerbation: Albuterol Atrovent Solu-Medrol Sepsis possibly secondary to community-acquired pneumonia: Rocephin Hypokalemia Hyponatremia Hypertension Type 2 diabetes Hypercholesterolemia History of left breast lumpectomy Time spent 70 minutes Advanced care planning time 20 minutes Patient is full code Plan discussed with: Patient My Orders Orders - HAZEL DAY MD Procedure Category Date Status Time Covid19 Antigen [facility] 02/03/25 Verified Rapid Influenza A&B LAB 02/03/25 Verified 13:29 Date of Service: February 03, 2025 Billing Provider: HAZEL DAY MD Common Visit Codes: [id number] CARE 30-74 MIN HAZEL DAY MD February 03, 2025 13:32
[2025-02-03] MEDS ORDERED: POTASSIUM CHL 20 Meq TABLET PO ONE (13:45)
[2025-02-03 15:07] LABS: Chloride 107 mmol/L (98-107); Sodium 141 mmol/L (136-145)
[2025-02-03 15:08] LABS: Anion Gap 10 (5-15); Calcium 9.8 mg/dL (8.7-10.4); Carbon Dioxide 24 mmol/L (20-31)
[2025-02-03 15:13] LABS: BUN/Creatinine Ratio 8.1 (10.0-20.0); Glucose 99 mg/dL (74-106)
[2025-02-03 15:16] LABS: Blood Urea Nitrogen 5 mg/dL (9-23); Potassium 3.5 mmol/L (3.5-5.1)
[2025-02-03] MEDS ORDERED: AMLO1TAB22 PO (18:08)
[2025-02-03] MEDS ORDERED: METF-370 PO (18:08)
[2025-02-03 21:40] LABS: Rapid Influenza A Negative (Negative); Rapid Influenza B Negative (Negative)
[2025-02-03 21:41] LABS: COVID19 ANTIGEN SOFIA FIA NEGATIVE (NEGATIVE)
[2025-02-03 22:43] LABS: Urine Bacteria None Seen /hpf (None Seen)
[2025-02-03 23:13] LABS: Urine Blood Negative /uL (Negative); Urine Clarity Clear (Clear); Urine Color Light-Yellow (Yellow); Urine Protein, UAD Negative (Negative); Urine Specific Gravity 1.014 (1.001-1.035); Urine Squamous Epithelial Cell None Seen /hpf (<5); Urine Urobilinogen Normal (Negative); Urine WBC < 1 /HPF (0-5); Urine pH 7.5 (5.0-9.0)
[2025-02-04] VITALS (19 sets, daily range): BP systolic 113–144; BP diastolic 66–80; PULSE 94–111; RESP 18–20; TEMP 97–98.3; O2SAT 91–100
[2025-02-04] MEDS: IPRATROPIUM BROM 0.5 MG/2.5ML INH SOL NEB PRN (02:19)
[2025-02-04] MEDS: ALBUTEROL SULF 2.5 MG/0.5ML(0.5%) NEB SOLN NEB PRN (02:19)
[2025-02-04 03:05] LABS: Base Excess -1.8 mmol/L (-2.0-3.0)
[2025-02-04 07:07] LABS: Basophils # (auto) 0 10 ^3/uL (0-0.2); Basophils % (auto) 0.1 % (0.0-2.0); Eosinophils # (auto) 0 10 ^3/uL (0-0.8); Eosinophils % (auto) 0.2 % (0.0-7.0); Hematocrit 41.8 % (36.0-46.0); Hemoglobin 14.1 g/dL (12.2-16.2); Lymphocytes # (auto) 1.5 10 ^3/uL (0.4-5.4); Lymphocytes % (auto) 11.9 % (10.0-50.0); Mean Corpuscular Hemoglobin 28.1 pg (28.0-32.0); Mean Corpuscular Hgb Conc. 33.7 g/dL (32.0-36.0); Mean Corpuscular Volume 83.4 fL (80.0-100.0); Monocytes # (auto) 0.2 10 ^3/uL (0-1.3); Monocytes % (auto) 1.7 % (0.0-12.0); Neutrophils # (auto) 10.8 10 ^3/uL (1.6-8.6); Neutrophils % (auto) 86.1 % (37.0-80.0); Platelet Count (auto) 330 10^3/uL (140-450); Red Blood Cells 5.02 10^6/uL (4.0-5.20); Red Cell Distribution Width 14.3 % (11.8-14.3); White Blood Cell 12.6 10^3/uL (4.4-10.8)
[2025-02-04 07:34] LABS: Alanine Aminotransferase 15 U/L (7-40); Alkaline Phosphatase 76 U/L (46-116); Anion Gap 11 (5-15); BUN/Creatinine Ratio 21.4 (10.0-20.0); Blood Urea Nitrogen 15 mg/dL (9-23); Calcium 9.9 mg/dL (8.7-10.4); Carbon Dioxide 22 mmol/L (20-31); Chloride 105 mmol/L (98-107); Potassium 3.8 mmol/L (3.5-5.1); Sodium 138 mmol/L (136-145)
[2025-02-04 07:35] LABS: Albumin 4.3 g/dL (3.2-4.8); Aspartate Aminotransferase 14 U/L (13-40); Bilirubin, Total 0.4 mg/dL (0.2-1.0); Glucose 168 mg/dL (74-106)
--- NOTE | 2025-02-04 10:47 | DVHPN2 ---
Reviewed: Care Plan, H&P, Labs, Medications, Previous Orders, Radiology Changes from previous H/P or p: No Changes Respiratory: Cough, Shortness of breath, Wheezing, Sputum Objective Vitals Vital Signs Date Time Temp Pulse Resp B/P (MAP) Pulse Ox O2 Delivery O2 Flow Rate FiO2 02/04/25 09:32 106 18 93 02/04/25 09:32 Nasal Cannula 4.0 02/04/25 09:32 N/A 02/04/25 09:02 135/80 02/04/25 09:02 97.4 97.4 Intake/Output Intake and Output 02/04/25 07:00 Intake Total 800 ml Balance 800 ml Intake Oral 500 ml IV Total 300 ml # Voids 2 Medications Current Medications Medications Dose Ordered Sig/Mehdi Route Start Time Stop Time Status Last Admin Dose Admin Albuterol 2.5 mg Q4HWA NEB 02/03/25 10:00 02/04/25 09:32 2.5 MG Ipratropium [place] 0.5 mg Q4HWA NEB 02/03/25 10:00 02/04/25 09:32 0.5 MG Methylprednisolone Sodium Succinate 40 mg BID IV 02/03/25 10:00 02/04/25 09:02 40 MG Ceftriaxone Sodium 50 ml @ 100 mls/hr DAILY@09 IV 02/03/25 09:00 02/04/25 09:02 100 MLS/HR Acetaminophen/ Hydrocodone Bitart 1 tab Q4HP PRN PO 02/03/25 07:00 Ondansetron HCl 4 mg Q4HP PRN IV 02/03/25 07:00 Enoxaparin Sodium 40 mg DAILY SC 02/03/25 10:00 02/04/25 09:03 40 MG Acetaminophen 650 mg Q6HP PRN PO 02/03/25 07:00 Diagnostic Test (Pha) 1 strip ACHS 02/03/25 07:00 02/04/25 06:10 1 STRIP Insulin Human Regular ACHS SC 02/03/25 07:00 02/04/25 06:10 3 UNITS Dextrose 50 ml UD PRN IV 02/03/25 07:00 Fluticasone Propionate 50 mcg BID NA 02/03/25 10:00 02/03/25 11:11 50 MCG Hydrochlorothiazide 25 mg DAILY PO 02/03/25 10:00 02/04/25 09:01 25 MG Patient Own Medication 10 mg DAILY PO 02/03/25 10:00 UNV Lisinopril 10 mg DAILY PO 02/03/25 10:00 02/04/25 09:02 10 MG Albuterol 2.5 mg Q4HPRN PRN NEB 02/04/25 01:15 02/04/25 02:19 2.5 MG Ipratropium [place] 0.5 mg Q4HPRN PRN NEB 02/04/25 01:15 02/04/25 02:19 0.5 MG Laboratory Results Laboratory Tests 02/04/25 06:07 Chemistry Test 02/03/25 14:46 02/04/25 06:07 Calcium Level 9.8 mg/dL (8.7-10.4) 9.9 mg/dL (8.7-10.4) Albumin 4.3 g/dL (3.2-4.8) Total Protein 7.0 g/dL (5.7-8.2) LFT Test 02/04/25 06:07 Alanine Aminotransferase (ALT) 15 U/L (7-40) Alkaline Phosphatase 76 U/L (46-116) Aspartate Amino Transferase (AST) 14 U/L (13-40) Total Bilirubin 0.4 mg/dL (0.2-1.0) Urinalysis Test 02/03/25 22:30 Urine Color Light-yellow (Yellow) Urine Clarity Clear (Clear) Urine pH 7.5 (5.0-9.0) Urine Specific [place] 1.014 (1.001-1.035) Urine Protein Negative (Negative) Urine Ketones Negative (Negative) Urine Blood Negative /uL (Negative) Urine Nitrite Negative (Negative) Urine Bilirubin Negative (Negative) Urine Urobilinogen Normal mg/dL (Negative) Urine Leukocyte Esterase Negative /uL (Negative) Urine RBC 2 /hpf (0 - 4) Urine Microscopic WBC < 1 /HPF (0-5) Urine Squamous Epithelial Cells None seen /hpf (<5) Urine Bacteria None seen /hpf (None Seen) Urine Glucose 4+ mg/dL (Normal) H Blood Gas Results Test 02/04/25 02:53 Arterial Blood pH 7.441 (7.350-7.450) FiO2 % 50.0 Microbiology Microbiology Date/Time Source Procedure Growth Status 02/03/25 03:05 Blood Blood Culture - Preliminary NO GROWTH AFTER 24 HOURS OF INCUBATION. Resulted Labs and/or images reviewed: Labs reviewed by me, Image(s) reviewed by me Assessment/Plan Assessment/Plan Acute hypoxic respiratory failure: Oxygen by nasal cannula Acute on chronic COPD exacerbation: Albuterol Atrovent Solu-Medrol Sepsis possibly secondary to community-acquired pneumonia: Rocephin History of Bronchiectasis Hypokalemia Hyponatremia Hypertension Type 2 diabetes Hypercholesterolemia Patient does not use home oxygen History of left breast lumpectomy Time spent 50 minutes Plan discussed with: Patient Date of Service: February 04, 2025 Billing Provider: HAZEL DAY MD Common Visit Codes: [id number] INP/OBS CARE(HIGH) HAZEL ADY MD February 04, 2025 10:47
[2025-02-05] VITALS (16 sets, daily range): BP systolic 137–144; BP diastolic 73–94; PULSE 84–115; RESP 16–22; TEMP 97.2–97.6; O2SAT 93–98
--- NOTE | 2025-02-05 13:11 | DVHPN2 ---
Reviewed: Care Plan, H&P, Labs, Medications, Previous Orders, Radiology Changes from previous H/P or p: No Changes Respiratory: Cough, Shortness of breath, Wheezing, Sputum Objective Vitals Vital Signs Date Time Temp Pulse Resp B/P (MAP) Pulse Ox O2 Delivery O2 Flow Rate FiO2 02/05/25 10:00 95 Room Air 4.0 02/05/25 10:00 36 02/05/25 09:35 97 18 02/05/25 09:16 144/80 02/05/25 09:00 97.6 97.6 Intake/Output Intake and Output 02/05/25 07:00 Intake Total 2350 ml Balance 2350 ml Intake Oral 2300 ml IV Total 50 ml # Voids 4 # Bowel Movements 2 Medications Current Medications Medications Dose Ordered Sig/Mehdi Route Start Time Stop Time Status Last Admin Dose Admin Albuterol 2.5 mg Q4HWA NEB 02/03/25 10:00 02/05/25 09:29 2.5 MG Ipratropium [place] 0.5 mg Q4HWA NEB 02/03/25 10:00 02/05/25 09:29 0.5 MG Methylprednisolone Sodium Succinate 40 mg BID IV 02/03/25 10:00 02/05/25 09:13 40 MG Ceftriaxone Sodium 50 ml @ 100 mls/hr DAILY@09 IV 02/03/25 09:00 02/05/25 09:12 100 MLS/HR Acetaminophen/ Hydrocodone Bitart 1 tab Q4HP PRN PO 02/03/25 07:00 Ondansetron HCl 4 mg Q4HP PRN IV 02/03/25 07:00 Enoxaparin Sodium 40 mg DAILY SC 02/03/25 10:00 02/05/25 09:14 40 MG Acetaminophen 650 mg Q6HP PRN PO 02/03/25 07:00 Diagnostic Test (Pha) 1 strip ACHS 02/03/25 07:00 02/05/25 11:30 1 STRIP Insulin Human Regular ACHS SC 02/03/25 07:00 02/05/25 11:32 6 UNITS Dextrose 50 ml UD PRN IV 02/03/25 07:00 Fluticasone Propionate 50 mcg BID NA 02/03/25 10:00 02/05/25 09:17 50 MCG Hydrochlorothiazide 25 mg DAILY PO 02/03/25 10:00 02/05/25 09:16 25 MG Patient Own Medication 10 mg DAILY PO 02/03/25 10:00 UNV Lisinopril 10 mg DAILY PO 02/03/25 10:00 02/05/25 09:15 10 MG Albuterol 2.5 mg Q4HPRN PRN NEB 02/04/25 01:15 02/05/25 02:01 2.5 MG Ipratropium [place] 0.5 mg Q4HPRN PRN NEB 02/04/25 01:15 02/05/25 02:01 0.5 MG Laboratory Results Laboratory Tests 02/04/25 06:07 Urinalysis Test 02/03/25 22:30 Urine Color Light-yellow (Yellow) Urine Clarity Clear (Clear) Urine pH 7.5 (5.0-9.0) Urine Specific [place] 1.014 (1.001-1.035) Urine Protein Negative (Negative) Urine Ketones Negative (Negative) Urine Blood Negative /uL (Negative) Urine Nitrite Negative (Negative) Urine Bilirubin Negative (Negative) Urine Urobilinogen Normal mg/dL (Negative) Urine Leukocyte Esterase Negative /uL (Negative) Urine RBC 2 /hpf (0 - 4) Urine Microscopic WBC < 1 /HPF (0-5) Urine Squamous Epithelial Cells None seen /hpf (<5) Urine Bacteria None seen /hpf (None Seen) Urine Glucose 4+ mg/dL (Normal) H Microbiology Microbiology Date/Time Source Procedure Growth Status 02/03/25 03:05 Blood Blood Culture - Preliminary NO GROWTH AFTER 48 HOURS OF INCUBATION. Resulted Labs and/or images reviewed: Labs reviewed by me, Image(s) reviewed by me Assessment/Plan Assessment/Plan Acute hypoxic respiratory failure: Oxygen by nasal cannula Acute on chronic COPD exacerbation: Albuterol Atrovent Solu-Medrol Sepsis possibly secondary to community-acquired pneumonia: Rocephin History of Bronchiectasis Hypokalemia Hyponatremia Hypertension Type 2 diabetes Hypercholesterolemia Patient does not use home oxygen ABG Shows patient does not qualify for home oxygen History of left breast lumpectomy Time spent 50 minutes Plan discussed with: Patient Date of Service: February 05, 2025 Billing Provider: HAZEL DAY MD Common Visit Codes: [id number] INP/OBS CARE(HIGH) HAZEL DAY MD February 05, 2025 13:11
[2025-02-05] MEDS ORDERED: LEVO500T91 PO (13:12)
[2025-02-05] MEDS ORDERED: PRED20TA2 PO (13:12)
--- NOTE | 2025-02-05 13:16 | DVHDS2 ---
Discharge Summary Date of Admission February 03, 2025 at 06:55 Date of Discharge: February 05, 2025 Admitting Diagnosis Shortness of breath Wounds: None Labs/Diagnostic Data: Laboratory Results Test 02/05/25 11:26 02/04/25 06:07 02/04/25 02:53 02/03/25 22:30 POC Glucose 253 mg/dl (70-106) White Blood Count 12.6 10^3/uL (4.4-10.8) Red Blood Count 5.02 10^6/uL (4.0-5.20) Hemoglobin 14.1 g/dL (12.2-16.2) Hematocrit 41.8 % (36.0-46.0) Mean Corpuscular Volume 83.4 fL (80.0-100.0) Mean Corpuscular Hemoglobin 28.1 pg (28.0-32.0) Mean Corpuscular Hemoglobin Concent 33.7 g/dL (32.0-36.0) Red Cell Distribution Width 14.3 % (11.8-14.3) Platelet Count 330 10^3/uL (140-450) Mean Platelet Volume 7.7 fL (6.9-10.8) Neutrophils (%) (Auto) 86.1 % (37.0-80.0) Lymphocytes (%) (Auto) 11.9 % (10.0-50.0) Monocytes (%) (Auto) 1.7 % (0.0-12.0) Eosinophils (%) (Auto) 0.2 % (0.0-7.0) Basophils (%) (Auto) 0.1 % (0.0-2.0) Neutrophils # (Auto) 10.8 10 ^3/uL (1.6-8.6) Lymphocytes # (Auto) 1.5 10 ^3/uL (0.4-5.4) Monocytes # (Auto) 0.2 10 ^3/uL (0-1.3) Eosinophils # (Auto) 0 10 ^3/uL (0-0.8) Basophils # (Auto) 0 10 ^3/uL (0-0.2) Nucleated Red Blood Cells 0.0 % Sodium Level 138 mmol/L (136-145) Potassium Level 3.8 mmol/L (3.5-5.1) Chloride Level 105 mmol/L (98-107) Carbon Dioxide Level 22 mmol/L (20-31) Anion Gap 11 (5-15) Blood Urea Nitrogen 15 mg/dL (9-23) Creatinine 0.70 mg/dL (0.550-1.02) Glomerular Filtration Rate Calc 99 mL/min (>90) BUN/Creatinine Ratio 21.4 (10.0-20.0) Serum Glucose 168 mg/dL (74-106) Calcium Level 9.9 mg/dL (8.7-10.4) Total Bilirubin 0.4 mg/dL (0.2-1.0) Aspartate Amino Transferase (AST) 14 U/L (13-40) Alanine Aminotransferase (ALT) 15 U/L (7-40) Alkaline Phosphatase 76 U/L (46-116) Total Protein 7.0 g/dL (5.7-8.2) Albumin 4.3 g/dL (3.2-4.8) Blood Gas Specimen Type Arterial Blood Gas Sample Site Right radial Blood Gas Patient Temperature 37.0 Arterial Blood Date Drawn [id number] Arterial Blood pH 7.441 (7.350-7.450) Arterial Blood Partial Pressure CO2 32.0 mmHg (32.0-45.0) Arterial Blood Partial Pressure O2 85.4 mmHg (83.0-108.0) Arterial Blood HCO3 21.3 mmol/L (21.0-28.0) Arterial Blood Oxygen Saturation 96.4 % (94.0-98.0) Arterial Blood Base Excess -1.8 mmol/L (-2.0-3.0) Arterial Blood Oxyhemoglobin 95.6 % (94.0-98.0) Arterial Blood Carboxyhemoglobin 0.3 % (0.5-1.5) Arterial Blood Methemoglobin 0.5 % (0.0-1.5) Zachary Test Modified Blood Gas Total Hemoglobin 15.30 g/dL (12.0-16.0) Blood Gas Liter Flow 10.00 Blood Gas Modality Mask - simple FiO2 % 50.0 Urine Color Light-yellow (Yellow) Urine Clarity Clear (Clear) Urine pH 7.5 (5.0-9.0) Urine Specific [place] 1.014 (1.001-1.035) Urine Protein Negative (Negative) Urine Ketones Negative (Negative) Urine Blood Negative /uL (Negative) Urine Nitrite Negative (Negative) Urine Bilirubin Negative (Negative) Urine Urobilinogen Normal mg/dL (Negative) Urine Leukocyte Esterase Negative /uL (Negative) Urine RBC 2 /hpf (0 - 4) Urine Microscopic WBC < 1 /HPF (0-5) Urine Squamous Epithelial Cells None seen /hpf (<5) Urine Bacteria None seen /hpf (None Seen) Urine Glucose 4+ mg/dL (Normal) Test 02/03/25 20:45 02/03/25 03:05 Influenza Type A Antigen Negative (Negative) Influenza Type B Antigen Negative (Negative) SARS-CoV-2 Antigen (Rapid) Negative (NEGATIVE) Differential Total Cells Counted 100.0 (100) Neutrophils % (Manual) 48 (37.0-80.0) Band Neutrophils % (Manual) 0 Lymphocytes % (Manual) 14 (10.0-50.0) Monocytes % (Manual) 8 (0-12) Eosinophils % (Manual) 30 (0-7) Basophils % (Manual) 0 (0.0-2.0) Metamyelocytes % (manual) 0 Myelocytes % (Manual) 0 Promyelocytes % (Manual) 0 Blast Cells % (Manual) 0 Reactive Lymphocytes 0 Platelet Estimate Adequate Erythrocyte Sedimentation Rate 5 mm/hr (0-20) Hemoglobin A1c 6.9 % A1C (<5.7) Lactic Acid Level 1.3 mmol/L (0.4-2.0) Magnesium Level 1.8 mg/dL (1.6-2.6) Troponin I High Sensitivity 3 ng/L (</=34) C-Reactive Protein High Sensitivity 0.72 mg/dL (<1.0) B-Type Natriuretic Peptide 8.55 pg/mL (0-100) Other Laboratory Tests 02/04/25 06:07 Brief Hx & Hospital Course: 59-year-old female with a history of bronchiectasis hypertension type 2 diabetes hypercholesterolemia COPD use of home oxygen on med neb treatment came in for shortness of breaths found to have acute COPD exacerbation treated with albuterol Atrovent Solu-Medrol possible community-acquired pneumonia treated with Rocephin patient feels better did not qualify for home oxygen by ABG. On room air at the time of discharge afebrile discharged home. Prescription for Levaquin and prednisone transmitted to the pharmacy she will continue all her home medications follow up with the primary Dr . Patient says she has an appointment with the cathodic protection technician. Consults/Reason for consult None Operations or Procedures None Condition at Discharge: Fair Final Diagnosis/Problems List Acute hypoxic respiratory failure: Oxygen by nasal cannula Acute on chronic COPD exacerbation: Albuterol Atrovent Solu-Medrol Sepsis possibly secondary to community-acquired pneumonia: Rocephin History of Bronchiectasis Hypokalemia Hyponatremia Hypertension Type 2 diabetes Hypercholesterolemia Patient does not use home oxygen ABG Shows patient does not qualify for home oxygen History of left breast lumpectomy Discharge Disposition: Home Discharge Instruct/Medications Diet: Cardiac 2g Na,low cholest Activity: Light activity Follow Up/Referral: Follow up with your primary Dr Medications: Levaquin Prednisone tablets Transmitted to [facility] 35 (Time Taken for discharge summary 35 minutes) Discharge Statement: "Patient was advised to return to the ER or call 911 if any headaches, dizziness, shortness of breath, chest pain, abdominal pain, bleeding, fevers, or worsening of medical condition. Patient was counseled about treatment plan, medications, possible side effects, patient�verbalized understanding. All questions were answered to the best of my ability. This discharge took greater then 30 minutes in planning, reviewing documentation, counseling the patient, and discussing with other team members." ASSESSMENT ASSESSMENT Hospital Course Improved Assessment Acute hypoxic respiratory failure: Oxygen by nasal cannula Acute on chronic COPD exacerbation: Albuterol Atrovent Solu-Medrol Sepsis possibly secondary to community-acquired pneumonia: Rocephin History of Bronchiectasis Hypokalemia Hyponatremia Hypertension Type 2 diabetes Hypercholesterolemia Patient does not use home oxygen ABG Shows patient does not qualify for home oxygen History of left breast lumpectomy Date of Service: February 05, 2025 Billing Provider: HAZEL DAY MD Common Visit Codes: [id number] DISCH DAY >30min HAZEL DAY MD February 05, 2025 13:16
[2025-02-05] MEDS ORDERED: PNEUMOCOCCAL VACC POLYS 25 MCG/0.5 ML VIAL IM ONE (14:00)
== END 2025-02-05 14:58 | disposition home or self-care (01) | DRG 720 ==
LOC: ER 02:20 → OVERFLOW 06:55 → TELE-WESTW 17:17
PROVIDERS: ADMIT Family Medicine; ATTEND Family Medicine
DX: A41.50 Gram-negative sepsis, unspecified (principal); J96.01 Acute respiratory failure with hypoxia; J15.69 Pneumonia due to other Gram-negative bacteria; J44.0 Chronic obstructive pulmonary disease with (acute) lower respiratory infection; E87.1 Hypo-osmolality and hyponatremia; J15.9 Unspecified bacterial pneumonia; J44.1 Chronic obstructive pulmonary disease with (acute) exacerbation; E11.9 Type 2 diabetes mellitus without complications; I10 Essential (primary) hypertension; Z20.822 Contact with and (suspected) exposure to COVID-19; E78.00 Pure hypercholesterolemia, unspecified; E87.6 Hypokalemia; Z82.49 Family history of ischemic heart disease and other diseases of the circulatory system; Z83.3 Family history of diabetes mellitus; Z90.49 Acquired absence of other specified parts of digestive tract
CPT/HCPCS: 36415; 36600; 71046; 80048; 80053; 81001; 82805; 82962; 83036; 83605; 83735; 83880; 84484; 85007; 85025; 85027; 85652; 86141; 87040; 87426; 87804; 94640; 96365; G0378; J1815